=== PATIENT | female | born 1945 | race Caucasian/White ===

== ENCOUNTER 2019-08-19 23:41 | Inpatient (IN) | payer MEDICARE, MEDICAID ==
[~2019-08-19] VITALS: Ht 157.5 cm; Wt 103.9 kg
[2019-08-20] MEDS ORDERED: SODIUM CHLORIDE 0.9% 1,000 ML IV ONE (00:27)
[2019-08-20] MEDS ORDERED: ONDANSETRON HCL 4MG/2ML INJ IV STA (00:27)
[2019-08-20] MEDS ORDERED: MORPHINE SULFATE 4 MG/ML CPJ (NOT FOR IM USE) IV STA (00:27)
[2019-08-20 02:06] LABS: BASOPHILS % 0.1 % (0.0-2.0); EOSINOPHILS % 0.2 % (0.0-5.0); HEMATOCRIT. 36.1 % (36.0-48.0); HEMOGLOBIN. 12.1 g/dL (12.0-16.0); LYMPHOCYTES % 8.2 % (20.0-50.0); MEAN CORPUSCULAR HEMOGLOBIN 33.6 pg (28.0-32.0); MEAN CORPUSCULAR VOLUME 100.2 fL (81.0-99.0); MEAN PLATELET VOLUME 9.1 fl (7.4-10.4); MONOCYTES % 5.8 % (2.0-8.0); NEUTROPHILS % 85.7 % (40.0-76.0); PLATELET 184 x1000/uL (130-400); RED BLOOD CELL COUNT 3.61 mill/uL (4.2-5.4); RED CELL DISTRIBUTION WIDTH 12.5 % (11.6-14.6)
[2019-08-20 02:23] LABS: INR 1.1; PROTHROMBIN TIME 11.8 sec (9.6-11.0)
[2019-08-20 02:24] LABS: CHLORIDE 104 mEq/L (98-107)
[2019-08-20 04:16] LABS: CLARITY URINE CLEAR (CLEAR); COLOR URINE YELLOW (YELLOW); KETONES URINE NEGATIVE (NEGATIVE); LEUKOCYTE ESTERASE URINE TRACE (NEGATIVE); NITRITE URINE NEGATIVE (NEGATIVE); OCCULT BLOOD URINE NEGATIVE (NEGATIVE); PROTEIN URINE NEGATIVE (NEGATIVE); SPECIFIC GRAVITY URINE 1.017 (1.005-1.030); UROBILINOGEN URINE 0.2 E.U./dL (0.2-1.0)
[2019-08-20] MEDS ORDERED: MORPHINE SULFATE 4 MG/ML CPJ (NOT FOR IM USE) IV PRN (05:30)
[2019-08-20] MEDS ORDERED: DEXTROSE 50% WATER 50ML SYRINGE IV PRN ×2 (05:30→21:30)
[2019-08-20] MEDS: BLOOD SUGAR DIAGNOSTIC STRIP TEST SCH ×4 (07:00→21:18)
[2019-08-20] MEDS: INSULIN LISPRO (LOW DOSE) 100 UNITS/ML SUBCUT SCH ×4 (07:00→21:27)
[2019-08-20 08:00] VITALS: BP 107/46
[2019-08-20 09:00] VITALS: BP 107/46
[2019-08-20] MEDS ORDERED: DEXT 5%/0.9% NACL 1,000 ML IV SCH (10:15)
[2019-08-20] MEDS: ONDANSETRON HCL 4MG/2ML INJ IV PRN (10:51)
[2019-08-20] MEDS: MORPHINE SULFATE 2 MG/ML CPJ (NOT FOR IM USE) IV PRN ×3 (10:51→18:54)
[2019-08-20 12:27] LABS: T4 FREE 1.14 ng/dL (0.76-1.46)
[2019-08-20] MEDS ORDERED: GLIP10TA10 PO (14:05)
[2019-08-20] MEDS ORDERED: RIVA20TA PO (14:05)
[2019-08-20] MEDS ORDERED: OMEP20TA2 PO (14:05)
[2019-08-20] MEDS ORDERED: BENA40TA9 PO (14:05)
[2019-08-20] MEDS ORDERED: BISA-81 PO (14:05)
[2019-08-20] MEDS ORDERED: POLY17PO28 PO (14:05)
[2019-08-20] MEDS ORDERED: INSNPH SUBCUT (14:05)
[2019-08-20] MEDS ORDERED: HYDR25TA PO (14:05)
[2019-08-20] MEDS ORDERED: SIMV-46 PO (14:05)
[2019-08-20] MEDS ORDERED: ALEN70TA68 PO (14:05)
[2019-08-20] MEDS ORDERED: GABA-529 PO (14:05)
[2019-08-20] MEDS ORDERED: METO25TA6 PO (14:05)
[2019-08-20] MEDS ORDERED: METO-293 PO (14:05)
[2019-08-20] MEDS ORDERED: CALC-769 PO (14:05)
[2019-08-20] MEDS ORDERED: DOCU-150 PO (14:05)
[2019-08-20 16:00] VITALS: BP 169/76
[2019-08-20 16:24] LABS: T4 FREE 1.12 ng/dL (0.76-1.46)
[2019-08-20 16:27] LABS: CREATINE KINASE 52 IU/L (26-192)
[2019-08-20 16:28] LABS: CREATINE KINASE MB FRACTION < 1.0 ng/mL (0.5-3.6)
[2019-08-20] MEDS: METOCLOPRAMIDE 10MG/10 ML UDC PO SCH (16:49)
[2019-08-20] MEDS: SODIUM CHLORIDE 0.9% 1,000 ML IV SCH (16:50)
[2019-08-20] MEDS: HYDRALAZINE HCL 25MG TABLET PO SCH ×2 (19:17→23:28)
[2019-08-20 20:00] VITALS: BP 126/69
[2019-08-20] MEDS: OMEPRAZOLE 20MG CAPSULE EXTENDED RELEASE PO SCH (20:47)
[2019-08-20] MEDS: HYDROMORPHONE HCL/PF 2MG/ML CPJ IV PRN (21:10)
[2019-08-20] MEDS: GABAPENTIN 100MG CAPSULE PO SCH (21:53)
[2019-08-20] MEDS: POLYETHYLENE GLYCOL 3350 (17GM) 1 DOSE PACK PO SCH (21:54)
[2019-08-20] MEDS: METOPROLOL TARTRATE 25MG TABLET PO SCH (21:54)
[2019-08-20] MEDS: DOCUSATE SODIUM 100MG CAPSULE PO SCH (23:30)
[2019-08-21] VITALS: BP_SYST 118; BP_SYST 129; BP_DIAS 66; BP_DIAS 69
[2019-08-21] MEDS: HYDROMORPHONE HCL/PF 2MG/ML CPJ IV PRN ×4 (01:34→22:04)
[2019-08-21] MEDS: SODIUM CHLORIDE 0.9% 1,000 ML IV SCH ×2 (01:37→18:16)
[2019-08-21] MEDS: ACETAMINOPHEN 325MG TABLET PO PRN (01:39)
[2019-08-21 04:00] VITALS: BP 129/66
[2019-08-21] MEDS: HYDRALAZINE HCL 25MG TABLET PO SCH ×3 (06:00→21:59)
[2019-08-21] MEDS: OMEPRAZOLE 20MG CAPSULE EXTENDED RELEASE PO SCH ×2 (06:54→21:59)
[2019-08-21] MEDS: BLOOD SUGAR DIAGNOSTIC STRIP TEST SCH ×7 (06:54→21:00)
[2019-08-21 07:48] LABS: CREATINE KINASE 47 IU/L (26-192)
[2019-08-21 07:49] LABS: CREATINE KINASE MB FRACTION < 1.0 ng/mL (0.5-3.6)
[2019-08-21] MEDS: INSULIN LISPRO 100 UNITS/ML SUBCUT SCH ×4 (07:50→22:03)
[2019-08-21] MEDS: INSULIN LISPRO (LOW DOSE) 100 UNITS/ML SUBCUT SCH ×3 (07:50→18:22)
[2019-08-21 08:40] VITALS: BP 139/60
[2019-08-21 08:42] LABS: CLARITY URINE CLEAR (CLEAR); COLOR URINE YELLOW (YELLOW); KETONES URINE NEGATIVE (NEGATIVE); LEUKOCYTE ESTERASE URINE 1+ (NEGATIVE); NITRITE URINE NEGATIVE (NEGATIVE); OCCULT BLOOD URINE NEGATIVE (NEGATIVE); PROTEIN URINE NEGATIVE (NEGATIVE); UROBILINOGEN URINE 0.2 E.U./dL (0.2-1.0)
[2019-08-21] MEDS: DOCUSATE SODIUM 100MG CAPSULE PO SCH (09:00)
[2019-08-21] MEDS: METOPROLOL TARTRATE 25MG TABLET PO SCH ×2 (09:08→22:00)
[2019-08-21] MEDS: POLYETHYLENE GLYCOL 3350 (17GM) 1 DOSE PACK PO SCH (09:08)
[2019-08-21] MEDS: GABAPENTIN 100MG CAPSULE PO SCH ×2 (09:08→18:16)
[2019-08-21] MEDS: METOCLOPRAMIDE 10MG/10 ML UDC PO SCH ×2 (09:08→18:16)
[2019-08-21 12:00] VITALS: BP 133/63
[2019-08-21] MEDS ORDERED: BUPIVACAINE/EPINEPH/PF 0.25%/0.0005 10ML ONE (12:55)
[2019-08-21] MEDS ORDERED: BACITRACIN 50,000 UNITS/VIAL ONE (12:56)
[2019-08-21] MEDS ORDERED: BACITRACIN 15GM TUBE TOP ONE (12:56)
[2019-08-21] MEDS ORDERED: VANCOMYCIN HCL 1 GM/VIAL ONE (12:56)
[2019-08-21] MEDS: ONDANSETRON HCL 4MG/2ML INJ IV PRN (14:46)
[2019-08-21] MEDS ORDERED: PROPOFOL 200MG/20ML VIAL IV ONE (15:17)
[2019-08-21] MEDS ORDERED: ONDANSETRON HCL 4MG/2ML INJ IV PRN (16:45)
[2019-08-21] MEDS ORDERED: KETOROLAC 30MG/ML VIAL IV ONE (16:45)
[2019-08-21] MEDS ORDERED: FENTANYL CITRATE/PF 50MCG/ML 2ML VIAL IV PRN (16:45)
[2019-08-21] MEDS ORDERED: KETOROLAC 30MG/ML VIAL IV NR (17:13)
[2019-08-21 18:08] VITALS: BP 119/59
[2019-08-21 20:00] VITALS: BP 128/54
[2019-08-21] MEDS: CEFAZOLIN 1000MG PREMIX 50 ML IV SCH (22:00)
[2019-08-22] VITALS: BP 117/61
[2019-08-22 04:00] VITALS: BP 105/62
[2019-08-22] MEDS: SODIUM CHLORIDE 0.9% 1,000 ML IV SCH ×2 (05:11→18:05)
[2019-08-22] MEDS: HYDROMORPHONE HCL/PF 2MG/ML CPJ IV PRN ×3 (05:11→20:55)
[2019-08-22] MEDS: CEFAZOLIN 1000MG PREMIX 50 ML IV SCH (05:11)
[2019-08-22] MEDS: HYDRALAZINE HCL 25MG TABLET PO SCH ×3 (06:00→21:37)
[2019-08-22] MEDS: BLOOD SUGAR DIAGNOSTIC STRIP TEST SCH ×4 (06:21→20:57)
[2019-08-22] MEDS: OMEPRAZOLE 20MG CAPSULE EXTENDED RELEASE PO SCH ×2 (06:21→20:57)
[2019-08-22 08:00] VITALS: BP 130/47
[2019-08-22] MEDS: METOCLOPRAMIDE 10MG/10 ML UDC PO SCH ×2 (08:41→17:48)
[2019-08-22] MEDS: GABAPENTIN 100MG CAPSULE PO SCH ×2 (08:42→17:48)
[2019-08-22] MEDS: DOCUSATE SODIUM 100MG CAPSULE PO SCH (08:42)
[2019-08-22] MEDS: POLYETHYLENE GLYCOL 3350 (17GM) 1 DOSE PACK PO SCH (08:42)
[2019-08-22] MEDS: METOPROLOL TARTRATE 25MG TABLET PO SCH ×2 (08:43→20:56)
[2019-08-22] MEDS: INSULIN LISPRO 100 UNITS/ML SUBCUT SCH ×4 (08:55→21:06)
[2019-08-22] MEDS ORDERED: ENOXAPARIN 40MG/0.4ML SYR SUBCUT SCH (09:00)
[2019-08-22 12:00] VITALS: BP 103/57
[2019-08-22 16:00] VITALS: BP 152/53
[2019-08-22 16:26] LABS: BASOPHILS % 0.4 % (0.0-2.0); EOSINOPHILS % 0.5 % (0.0-5.0); HEMATOCRIT. 29.7 % (36.0-48.0); HEMOGLOBIN. 9.8 g/dL (12.0-16.0); LYMPHOCYTES % 12.7 % (20.0-50.0); MEAN CORPUSCULAR HEMOGLOBIN 33.8 pg (28.0-32.0); MEAN CORPUSCULAR VOLUME 102.1 fL (81.0-99.0); MEAN PLATELET VOLUME 9.8 fl (7.4-10.4); MONOCYTES % 8.8 % (2.0-8.0); NEUTROPHILS % 77.6 % (40.0-76.0); PLATELET 145 x1000/uL (130-400); RED BLOOD CELL COUNT 2.91 mill/uL (4.2-5.4); RED CELL DISTRIBUTION WIDTH 12.8 % (11.6-14.6)
[2019-08-22 17:04] LABS: CHLORIDE 106 mEq/L (98-107)
[2019-08-22 20:00] VITALS: BP 110/54
[2019-08-22] MEDS: ACETAMINOPHEN 325MG TABLET PO PRN (21:00)
[2019-08-22] MEDS ORDERED: HYDROCODONE/ACETAMINOPHEN 10/325MG TABLET PO PRN (22:45)
[2019-08-23] VITALS: BP 127/60
[2019-08-23 04:00] VITALS: BP 142/59
[2019-08-23] MEDS: BLOOD SUGAR DIAGNOSTIC STRIP TEST SCH ×4 (05:25→21:20)
[2019-08-23] MEDS: HYDRALAZINE HCL 25MG TABLET PO SCH ×3 (05:25→21:28)
[2019-08-23] MEDS: OMEPRAZOLE 20MG CAPSULE EXTENDED RELEASE PO SCH (06:23)
[2019-08-23 08:31] VITALS: BP 121/40
[2019-08-23] MEDS: POLYETHYLENE GLYCOL 3350 (17GM) 1 DOSE PACK PO SCH (08:43)
[2019-08-23] MEDS: METOCLOPRAMIDE 10MG/10 ML UDC PO SCH ×2 (08:43→17:04)
[2019-08-23] MEDS: DOCUSATE SODIUM 100MG CAPSULE PO SCH (08:43)
[2019-08-23] MEDS: METOPROLOL TARTRATE 25MG TABLET PO SCH ×2 (08:44→21:29)
[2019-08-23] MEDS: INSULIN LISPRO 100 UNITS/ML SUBCUT SCH ×4 (08:56→21:31)
[2019-08-23] MEDS: HYDROCODONE/ACETAMINOPHEN 5/325MG TABLET PO PRN ×3 (11:05→21:29)
[2019-08-23 11:57] VITALS: BP 119/34
[2019-08-23 14:05] LABS: CHLORIDE 108 mEq/L (98-107)
[2019-08-23 15:05] LABS: BASOPHILS % 0.6 % (0.0-2.0); EOSINOPHILS % 2.4 % (0.0-5.0); HEMATOCRIT. 28.3 % (36.0-48.0); HEMOGLOBIN. 9.4 g/dL (12.0-16.0); LYMPHOCYTES % 14.1 % (20.0-50.0); MEAN CORPUSCULAR HEMOGLOBIN 33.7 pg (28.0-32.0); MEAN CORPUSCULAR VOLUME 101.7 fL (81.0-99.0); MEAN PLATELET VOLUME 9.4 fl (7.4-10.4); MONOCYTES % 9.5 % (2.0-8.0); NEUTROPHILS % 73.4 % (40.0-76.0); PLATELET 157 x1000/uL (130-400); RED BLOOD CELL COUNT 2.78 mill/uL (4.2-5.4); RED CELL DISTRIBUTION WIDTH 12.3 % (11.6-14.6)
[2019-08-23 16:36] VITALS: BP 132/55
[2019-08-23] MEDS: RIVAROXABAN 20 MG TABLET PO SCH (17:04)
[2019-08-23 20:00] VITALS: BP 144/67
[2019-08-23] MEDS: FAMOTIDINE 20MG TABLET PO SCH (21:28)
[2019-08-24] VITALS: BP 135/58
[2019-08-24] MEDS: HYDROCODONE/ACETAMINOPHEN 5/325MG TABLET PO PRN ×3 (02:11→14:01)
[2019-08-24 04:13] VITALS: BP 137/49
[2019-08-24] MEDS: BLOOD SUGAR DIAGNOSTIC STRIP TEST SCH ×2 (06:12→12:20)
[2019-08-24] MEDS: HYDRALAZINE HCL 25MG TABLET PO SCH ×2 (06:16→17:10)
[2019-08-24 08:06] VITALS: BP 149/52
[2019-08-24] MEDS: DOCUSATE SODIUM 100MG CAPSULE PO SCH (09:00)
[2019-08-24] MEDS: POLYETHYLENE GLYCOL 3350 (17GM) 1 DOSE PACK PO SCH (09:00)
[2019-08-24] MEDS: INSULIN LISPRO 100 UNITS/ML SUBCUT SCH ×3 (09:55→17:18)
[2019-08-24] MEDS: METOPROLOL TARTRATE 25MG TABLET PO SCH (09:58)
[2019-08-24] MEDS: METOCLOPRAMIDE 10MG/10 ML UDC PO SCH ×2 (10:07→17:09)
[2019-08-24] MEDS: FAMOTIDINE 20MG TABLET PO SCH (10:07)
[2019-08-24 11:41] VITALS: BP 153/61
[2019-08-24] MEDS ORDERED: SODIUM CHLORIDE 0.9% 1,000 ML IV SCH (14:00)
[2019-08-24 15:55] VITALS: BP 159/55
[2019-08-24] MEDS: RIVAROXABAN 20 MG TABLET PO SCH (17:14)
== END 2019-08-24 17:33 | DRG 481 ==
LOC: ER 23:41 → ENRESERV 08-20 07:33 → 6WST 08-20 08:35 → EDBEDREQ 08-20 08:52
PROVIDERS: ADMIT Family Medicine; ATTEND Family Medicine
PROC: 0QS704Z Reposition Left Upper Femur with Internal Fixation Device, Open Approach (ICD-10-PCS; principal; 2019-08-21)
DX: S72.002A Fracture of unspecified part of neck of left femur, initial encounter for closed fracture (principal); Z68.41 Body mass index [BMI] 40.0-44.9, adult; E78.5 Hyperlipidemia, unspecified; E11.51 Type 2 diabetes mellitus with diabetic peripheral angiopathy without gangrene; E66.01 Morbid (severe) obesity due to excess calories; Z96.641 Presence of right artificial hip joint; I48.91 Unspecified atrial fibrillation; W18.39XA Other fall on same level, initial encounter; I10 Essential (primary) hypertension; Z79.01 Long term (current) use of anticoagulants; Z90.710 Acquired absence of both cervix and uterus; Y93.89 Activity, other specified; Y92.89 Other specified places as the place of occurrence of the external cause; Y99.8 Other external cause status; Z79.4 Long term (current) use of insulin; Z79.899 Other long term (current) drug therapy; Z87.81 Personal history of (healed) traumatic fracture
CPT/HCPCS: 36415; 71045; 72170; 73503; 73552; 73700; 76000; 78582; 80053; 80061; 81003; 82550; 82553; 82962; 83036; 83735; 83880; 84439; 84443; 84484; 85018; 85025; 85379; 86850; 86900; 93005; 93306; 93970; 96372; 96374; 96375; 96376; 97110; 97162; 97530; 99285; A6261; A9558; C1713; J0171; J0690; J1170; J1650; J1815; J1885; J2270; J2405; J2704; J3010; J3370; J3490; J7030; J7042; J8597; A4315

== ENCOUNTER 2019-08-24 17:35 | Inpatient (IN) | payer MEDICARE, MEDICAID ==
[~2019-08-24] VITALS: Ht 157.5 cm; Wt 103.9 kg
[~2019-08-24 17:35] MED LIST: ALEN70TA68 PO; BENA40TA9 PO; BISA-81 PO; CALC-769 PO; DOCU-150 PO; GABA-529 PO; GLIP10TA10 PO; HYDR25TA PO; INSNPH SUBCUT; METO-293 PO; METO25TA6 PO; OMEP20TA2 PO; POLY17PO28 PO; RIVA20TA PO; SIMV-46 PO
[2019-08-24] MEDS ORDERED: DEXTROSE 50% WATER 50ML SYRINGE IV PRN (19:30)
[2019-08-24] MEDS ORDERED: ONDANSETRON HCL 4MG/2ML INJ IV PRN (19:45)
[2019-08-24 20:00] VITALS: BP 148/67
[2019-08-24] MEDS ORDERED: SODIUM CHLORIDE 0.9% 1,000 ML IV SCH (20:00)
[2019-08-24] MEDS: FAMOTIDINE 20MG TABLET PO SCH (21:47)
[2019-08-24] MEDS: METOPROLOL TARTRATE 25MG TABLET PO SCH (21:48)
[2019-08-24] MEDS: BLOOD SUGAR DIAGNOSTIC STRIP TEST SCH (21:48)
[2019-08-24] MEDS: HYDROCODONE/ACETAMINOPHEN 5/325MG TABLET PO PRN (21:49)
[2019-08-24] MEDS: HYDRALAZINE HCL 25MG TABLET PO SCH (21:53)
[2019-08-24] MEDS: INSULIN LISPRO 100 UNITS/ML SUBCUT SCH (23:20)
[2019-08-25] MEDS: HYDRALAZINE HCL 25MG TABLET PO SCH ×3 (06:32→22:52)
[2019-08-25] MEDS: BLOOD SUGAR DIAGNOSTIC STRIP TEST SCH ×4 (06:32→21:02)
[2019-08-25] MEDS: HYDROCODONE/ACETAMINOPHEN 5/325MG TABLET PO PRN ×4 (06:33→21:03)
[2019-08-25] MEDS: INSULIN LISPRO 100 UNITS/ML SUBCUT SCH ×4 (06:56→23:33)
[2019-08-25 07:59] VITALS: BP 148/63
[2019-08-25] MEDS: METOCLOPRAMIDE HCL 10MG TABLET PO SCH ×2 (08:34→17:26)
[2019-08-25] MEDS: METOPROLOL TARTRATE 25MG TABLET PO SCH ×2 (08:35→21:02)
[2019-08-25] MEDS: FAMOTIDINE 20MG TABLET PO SCH ×2 (08:35→21:01)
[2019-08-25] MEDS: POLYETHYLENE GLYCOL 3350 (17GM) 1 DOSE PACK PO SCH (08:38)
[2019-08-25] MEDS: DOCUSATE SODIUM SUGAR FREE 100MG/10ML UDC NG SCH (08:39)
[2019-08-25] MEDS: ACETAMINOPHEN 325MG TABLET PO PRN ×2 (10:05→19:01)
[2019-08-25 11:51] VITALS: BP 138/59
[2019-08-25 16:19] VITALS: BP 147/68
[2019-08-25] MEDS: RIVAROXABAN 20 MG TABLET PO SCH (17:27)
[2019-08-25] MEDS ORDERED: POLYVINYL ALCOHOL OPHTH DROPS 15ML BOTHEYE PRN (18:45)
[2019-08-25 20:00] VITALS: BP 158/72
[2019-08-26] MEDS: HYDROCODONE/ACETAMINOPHEN 5/325MG TABLET PO PRN ×4 (02:50→21:27)
[2019-08-26] MEDS: ACETAMINOPHEN 325MG TABLET PO PRN ×2 (06:07→13:29)
[2019-08-26] MEDS: HYDRALAZINE HCL 25MG TABLET PO SCH ×3 (06:08→22:00)
[2019-08-26] MEDS: BLOOD SUGAR DIAGNOSTIC STRIP TEST SCH ×4 (06:08→21:11)
[2019-08-26] MEDS: INSULIN LISPRO 100 UNITS/ML SUBCUT SCH ×5 (07:04→21:31)
[2019-08-26 07:53] VITALS: BP 145/64
[2019-08-26] MEDS: DOCUSATE SODIUM SUGAR FREE 100MG/10ML UDC NG SCH (09:00)
[2019-08-26] MEDS: POLYETHYLENE GLYCOL 3350 (17GM) 1 DOSE PACK PO SCH (09:00)
[2019-08-26] MEDS: FAMOTIDINE 20MG TABLET PO SCH ×2 (09:21→21:29)
[2019-08-26] MEDS: METOPROLOL TARTRATE 25MG TABLET PO SCH ×2 (09:21→21:29)
[2019-08-26] MEDS: METOCLOPRAMIDE HCL 10MG TABLET PO SCH ×2 (09:22→17:21)
[2019-08-26 13:32] VITALS: BP 141/61
[2019-08-26] MEDS ORDERED: POLYETHYLENE GLYCOL 3350 (17GM) 1 DOSE PACK PO PRN (14:15)
[2019-08-26] MEDS: RIVAROXABAN 20 MG TABLET PO SCH (17:21)
[2019-08-26] MEDS: TRAMADOL 50MG TABLET PO PRN (18:30)
[2019-08-26 20:00] VITALS: BP 145/68
[2019-08-27] MEDS: TRAMADOL 50MG TABLET PO PRN ×3 (01:30→17:38)
[2019-08-27] MEDS: HYDRALAZINE HCL 25MG TABLET PO SCH ×3 (05:00→22:00)
[2019-08-27] MEDS: BLOOD SUGAR DIAGNOSTIC STRIP TEST SCH ×4 (06:11→21:47)
[2019-08-27] MEDS: HYDROCODONE/ACETAMINOPHEN 5/325MG TABLET PO PRN ×2 (06:14→13:22)
[2019-08-27] MEDS: INSULIN LISPRO 100 UNITS/ML SUBCUT SCH ×4 (06:16→22:22)
[2019-08-27 07:27] LABS: HEMATOCRIT. 29.3 % (36.0-48.0); HEMOGLOBIN. 9.9 g/dL (12.0-16.0); MEAN CORPUSCULAR HEMOGLOBIN 33.8 pg (28.0-32.0); MEAN CORPUSCULAR VOLUME 99.7 fL (81.0-99.0); MEAN PLATELET VOLUME 8.7 fl (7.4-10.4); PLATELET 259 x1000/uL (130-400); RED BLOOD CELL COUNT 2.94 mill/uL (4.2-5.4); RED CELL DISTRIBUTION WIDTH 12.4 % (11.6-14.6)
[2019-08-27 08:04] VITALS: BP 148/64
[2019-08-27] MEDS: DOCUSATE SODIUM SUGAR FREE 100MG/10ML UDC PO SCH (08:55)
[2019-08-27] MEDS: METOCLOPRAMIDE HCL 10MG TABLET PO SCH ×2 (08:56→16:32)
[2019-08-27] MEDS: METOPROLOL TARTRATE 25MG TABLET PO SCH ×2 (08:57→22:20)
[2019-08-27] MEDS: FAMOTIDINE 20MG TABLET PO SCH ×2 (08:57→22:20)
[2019-08-27] MEDS: RIVAROXABAN 20 MG TABLET PO SCH (16:32)
[2019-08-27 16:39] LABS: PLATELET ESTIMATE NORMAL
[2019-08-27 20:00] VITALS: BP 145/63
[2019-08-27] MEDS: ACETAMINOPHEN 325MG TABLET PO PRN (22:19)
[2019-08-28] MEDS: HYDROCODONE/ACETAMINOPHEN 5/325MG TABLET PO PRN ×4 (02:22→22:02)
[2019-08-28] MEDS: BLOOD SUGAR DIAGNOSTIC STRIP TEST SCH ×4 (05:39→21:00)
[2019-08-28] MEDS: HYDRALAZINE HCL 25MG TABLET PO SCH ×3 (05:40→22:00)
[2019-08-28] MEDS: INSULIN LISPRO 100 UNITS/ML SUBCUT SCH ×4 (06:21→22:07)
[2019-08-28 08:20] VITALS: BP 137/59
[2019-08-28] MEDS: METOPROLOL TARTRATE 25MG TABLET PO SCH ×2 (08:29→21:00)
[2019-08-28] MEDS: METOCLOPRAMIDE HCL 10MG TABLET PO SCH ×2 (08:29→17:18)
[2019-08-28] MEDS: FAMOTIDINE 20MG TABLET PO SCH ×2 (08:29→22:03)
[2019-08-28] MEDS: DOCUSATE SODIUM SUGAR FREE 100MG/10ML UDC PO SCH (08:29)
[2019-08-28] MEDS: TRAMADOL 50MG TABLET PO PRN (10:35)
[2019-08-28] MEDS: RIVAROXABAN 20 MG TABLET PO SCH (17:22)
[2019-08-28 20:00] VITALS: BP 122/47
[2019-08-29] MEDS: TRAMADOL 50MG TABLET PO PRN (02:58)
[2019-08-29] MEDS: BLOOD SUGAR DIAGNOSTIC STRIP TEST SCH ×4 (06:03→21:47)
[2019-08-29] MEDS: HYDRALAZINE HCL 25MG TABLET PO SCH ×3 (06:03→21:47)
[2019-08-29] MEDS: INSULIN LISPRO 100 UNITS/ML SUBCUT SCH ×4 (06:05→21:56)
[2019-08-29 07:42] VITALS: BP 138/52
[2019-08-29] MEDS: METOPROLOL TARTRATE 25MG TABLET PO SCH ×2 (08:37→21:46)
[2019-08-29] MEDS: DOCUSATE SODIUM SUGAR FREE 100MG/10ML UDC PO SCH (08:37)
[2019-08-29] MEDS: FAMOTIDINE 20MG TABLET PO SCH ×2 (08:37→21:46)
[2019-08-29] MEDS: METOCLOPRAMIDE HCL 10MG TABLET PO SCH ×2 (08:37→17:20)
[2019-08-29] MEDS: HYDROCODONE/ACETAMINOPHEN 5/325MG TABLET PO PRN ×3 (08:38→19:33)
[2019-08-29] MEDS: RIVAROXABAN 20 MG TABLET PO SCH (17:20)
[2019-08-29 20:00] VITALS: BP 140/43
[2019-08-30] MEDS: HYDROCODONE/ACETAMINOPHEN 5/325MG TABLET PO PRN ×4 (00:26→20:54)
[2019-08-30] MEDS: HYDRALAZINE HCL 25MG TABLET PO SCH ×3 (06:00→22:00)
[2019-08-30] MEDS: BLOOD SUGAR DIAGNOSTIC STRIP TEST SCH ×4 (06:30→20:59)
[2019-08-30] MEDS: INSULIN LISPRO 100 UNITS/ML SUBCUT SCH ×4 (06:38→21:20)
[2019-08-30 08:06] VITALS: BP 129/52
[2019-08-30] MEDS: METOCLOPRAMIDE HCL 10MG TABLET PO SCH ×2 (08:14→16:26)
[2019-08-30] MEDS: FAMOTIDINE 20MG TABLET PO SCH ×2 (08:14→20:51)
[2019-08-30] MEDS: METOPROLOL TARTRATE 25MG TABLET PO SCH ×2 (08:15→20:52)
[2019-08-30] MEDS: DOCUSATE SODIUM SUGAR FREE 100MG/10ML UDC PO SCH (08:17)
[2019-08-30] MEDS: TRAMADOL 50MG TABLET PO PRN (08:29)
[2019-08-30 12:11] VITALS: BP 146/54
[2019-08-30] MEDS: GLIPIZIDE 5MG TABLET PO SCH ×2 (12:44→16:26)
[2019-08-30] MEDS: RIVAROXABAN 20 MG TABLET PO SCH (16:27)
[2019-08-30 20:00] VITALS: BP 129/60
[2019-08-31] MEDS: HYDROCODONE/ACETAMINOPHEN 5/325MG TABLET PO PRN ×4 (01:30→20:52)
[2019-08-31] MEDS: HYDRALAZINE HCL 25MG TABLET PO SCH ×3 (06:39→23:11)
[2019-08-31] MEDS: BLOOD SUGAR DIAGNOSTIC STRIP TEST SCH ×4 (06:40→20:53)
[2019-08-31] MEDS: INSULIN LISPRO 100 UNITS/ML SUBCUT SCH ×4 (06:44→21:51)
[2019-08-31 07:58] VITALS: BP 123/65
[2019-08-31] MEDS: FAMOTIDINE 20MG TABLET PO SCH ×2 (08:09→20:53)
[2019-08-31] MEDS: METOCLOPRAMIDE HCL 10MG TABLET PO SCH ×2 (08:09→16:28)
[2019-08-31] MEDS: GLIPIZIDE 5MG TABLET PO SCH ×2 (08:09→16:28)
[2019-08-31] MEDS: METOPROLOL TARTRATE 25MG TABLET PO SCH ×2 (08:09→20:52)
[2019-08-31] MEDS: DOCUSATE SODIUM SUGAR FREE 100MG/10ML UDC PO SCH (08:11)
[2019-08-31] MEDS: TRAMADOL 50MG TABLET PO PRN (10:14)
[2019-08-31 13:11] VITALS: BP 130/51
[2019-08-31] MEDS: RIVAROXABAN 20 MG TABLET PO SCH (16:28)
[2019-08-31 20:00] VITALS: BP 126/58
[2019-09-01] MEDS: HYDROCODONE/ACETAMINOPHEN 5/325MG TABLET PO PRN ×4 (02:42→22:12)
[2019-09-01] MEDS: BLOOD SUGAR DIAGNOSTIC STRIP TEST SCH ×4 (06:05→21:00)
[2019-09-01] MEDS: HYDRALAZINE HCL 25MG TABLET PO SCH ×3 (06:06→22:00)
[2019-09-01 07:20] LABS: BASOPHILS % 0.5 % (0.0-2.0); EOSINOPHILS % 2.4 % (0.0-5.0); HEMATOCRIT. 31.3 % (36.0-48.0); HEMOGLOBIN. 10.7 g/dL (12.0-16.0); LYMPHOCYTES % 18.3 % (20.0-50.0); MEAN CORPUSCULAR HEMOGLOBIN 34.2 pg (28.0-32.0); MEAN CORPUSCULAR VOLUME 99.8 fL (81.0-99.0); MEAN PLATELET VOLUME 8.4 fl (7.4-10.4); MONOCYTES % 7.4 % (2.0-8.0); NEUTROPHILS % 71.4 % (40.0-76.0); PLATELET 370 x1000/uL (130-400); RED BLOOD CELL COUNT 3.13 mill/uL (4.2-5.4)
[2019-09-01 07:36] LABS: CHLORIDE 101 mEq/L (98-107)
[2019-09-01 08:00] VITALS: BP 123/40
[2019-09-01] MEDS: METOPROLOL TARTRATE 25MG TABLET PO SCH ×2 (09:00→22:10)
[2019-09-01] MEDS: INSULIN LISPRO 100 UNITS/ML SUBCUT SCH ×4 (09:00→22:19)
[2019-09-01] MEDS: DOCUSATE SODIUM SUGAR FREE 100MG/10ML UDC PO SCH (10:48)
[2019-09-01] MEDS: METOCLOPRAMIDE HCL 10MG TABLET PO SCH ×2 (10:49→17:38)
[2019-09-01] MEDS: GLIPIZIDE 5MG TABLET PO SCH ×2 (10:49→17:38)
[2019-09-01] MEDS: FAMOTIDINE 20MG TABLET PO SCH ×2 (10:49→22:09)
[2019-09-01] MEDS ORDERED: LACTULOSE 20G/30ML UDC PO SCH ×2 (13:07→13:14)
[2019-09-01] MEDS: MAGNESIUM OXIDE 400MG TABLET PO SCH ×2 (14:35→22:08)
[2019-09-01] MEDS: RIVAROXABAN 20 MG TABLET PO SCH (17:38)
[2019-09-01 20:00] VITALS: BP 138/57
[2019-09-02] MEDS: HYDRALAZINE HCL 25MG TABLET PO SCH ×3 (05:47→22:00)
[2019-09-02] MEDS: INSULIN LISPRO 100 UNITS/ML SUBCUT SCH ×4 (06:22→22:19)
[2019-09-02] MEDS: ACETAMINOPHEN 325MG TABLET PO PRN ×2 (06:31→21:28)
[2019-09-02] MEDS: BLOOD SUGAR DIAGNOSTIC STRIP TEST SCH ×4 (06:31→21:13)
[2019-09-02 08:00] VITALS: BP 96/50
[2019-09-02] MEDS: METOPROLOL TARTRATE 25MG TABLET PO SCH ×2 (09:00→21:28)
[2019-09-02] MEDS: FAMOTIDINE 20MG TABLET PO SCH ×2 (10:40→21:28)
[2019-09-02] MEDS: DOCUSATE SODIUM 100MG CAPSULE PO SCH (10:40)
[2019-09-02] MEDS: MAGNESIUM OXIDE 400MG TABLET PO SCH ×2 (10:40→21:27)
[2019-09-02] MEDS: METOCLOPRAMIDE HCL 10MG TABLET PO SCH ×2 (10:40→18:42)
[2019-09-02] MEDS: GLIPIZIDE 5MG TABLET PO SCH ×2 (10:40→18:42)
[2019-09-02] MEDS: HYDROCODONE/ACETAMINOPHEN 5/325MG TABLET PO PRN (14:16)
[2019-09-02] MEDS: RIVAROXABAN 20 MG TABLET PO SCH (18:42)
[2019-09-02 20:00] VITALS: BP 126/60
[2019-09-03] MEDS: HYDROCODONE/ACETAMINOPHEN 5/325MG TABLET PO PRN ×4 (00:25→21:16)
[2019-09-03] MEDS: BLOOD SUGAR DIAGNOSTIC STRIP TEST SCH ×4 (05:38→21:18)
[2019-09-03] MEDS: HYDRALAZINE HCL 25MG TABLET PO SCH ×3 (05:38→22:00)
[2019-09-03] MEDS: INSULIN LISPRO 100 UNITS/ML SUBCUT SCH ×4 (06:15→21:17)
[2019-09-03] MEDS: GLIPIZIDE 5MG TABLET PO SCH ×2 (08:52→16:25)
[2019-09-03] MEDS: FAMOTIDINE 20MG TABLET PO SCH ×2 (08:52→21:15)
[2019-09-03] MEDS: METOPROLOL TARTRATE 25MG TABLET PO SCH ×2 (08:52→21:17)
[2019-09-03] MEDS: METOCLOPRAMIDE HCL 10MG TABLET PO SCH ×2 (08:52→16:25)
[2019-09-03] MEDS: DOCUSATE SODIUM 100MG CAPSULE PO SCH (08:55)
[2019-09-03 09:15] VITALS: BP 125/57
[2019-09-03] MEDS: ACETAMINOPHEN 325MG TABLET PO PRN (12:16)
[2019-09-03 13:16] VITALS: BP 134/60
[2019-09-03] MEDS: RIVAROXABAN 20 MG TABLET PO SCH (16:25)
[2019-09-03 20:00] VITALS: BP 138/62
[2019-09-04] MEDS: ACETAMINOPHEN 325MG TABLET PO PRN (04:49)
[2019-09-04] MEDS: INSULIN LISPRO 100 UNITS/ML SUBCUT SCH ×4 (06:14→22:13)
[2019-09-04] MEDS: BLOOD SUGAR DIAGNOSTIC STRIP TEST SCH ×4 (06:15→21:00)
[2019-09-04] MEDS: HYDRALAZINE HCL 25MG TABLET PO SCH ×2 (06:15→13:09)
[2019-09-04 08:35] VITALS: BP 156/81
[2019-09-04] MEDS: METOPROLOL TARTRATE 25MG TABLET PO SCH ×2 (09:00→22:08)
[2019-09-04] MEDS: METOCLOPRAMIDE HCL 10MG TABLET PO SCH ×2 (09:00→16:22)
[2019-09-04] MEDS: GLIPIZIDE 5MG TABLET PO SCH ×2 (09:00→16:22)
[2019-09-04] MEDS: HYDROCODONE/ACETAMINOPHEN 5/325MG TABLET PO PRN ×3 (09:00→22:01)
[2019-09-04] MEDS: FAMOTIDINE 20MG TABLET PO SCH ×2 (09:00→22:08)
[2019-09-04] MEDS: DOCUSATE SODIUM 100MG CAPSULE PO SCH (09:00)
[2019-09-04 12:31] VITALS: BP 142/61
[2019-09-04] MEDS ORDERED: NA PHOS,M-B/NA PHOS,DI-BA ENEMA 118ML PR PRN (13:30)
[2019-09-04] MEDS ORDERED: BISACODYL 5MG TABLET PO PRN (13:30)
[2019-09-04] MEDS: RIVAROXABAN 20 MG TABLET PO SCH (16:22)
[2019-09-04 20:00] VITALS: BP 135/63
[2019-09-05] MEDS: HYDRALAZINE HCL 25MG TABLET PO SCH ×4 (06:33→22:00)
[2019-09-05] MEDS: INSULIN LISPRO 100 UNITS/ML SUBCUT SCH ×4 (06:33→21:49)
[2019-09-05] MEDS: BLOOD SUGAR DIAGNOSTIC STRIP TEST SCH ×4 (06:35→21:47)
[2019-09-05 08:00] VITALS: BP 164/64
[2019-09-05] MEDS: DOCUSATE SODIUM 100MG CAPSULE PO SCH (09:00)
[2019-09-05] MEDS: FAMOTIDINE 20MG TABLET PO SCH ×2 (09:00→21:46)
[2019-09-05] MEDS: GLIPIZIDE 5MG TABLET PO SCH ×2 (09:00→17:00)
[2019-09-05] MEDS: METOCLOPRAMIDE HCL 10MG TABLET PO SCH ×2 (09:00→17:00)
[2019-09-05] MEDS: METOPROLOL TARTRATE 25MG TABLET PO SCH ×2 (09:01→21:47)
[2019-09-05] MEDS: HYDROCODONE/ACETAMINOPHEN 5/325MG TABLET PO PRN ×3 (09:02→23:20)
[2019-09-05] MEDS: ACETAMINOPHEN 325MG TABLET PO PRN (13:29)
[2019-09-05] MEDS: RIVAROXABAN 20 MG TABLET PO SCH (17:00)
[2019-09-05 20:00] VITALS: BP 141/68
[2019-09-06] MEDS: HYDROCODONE/ACETAMINOPHEN 5/325MG TABLET PO PRN ×3 (05:17→14:02)
[2019-09-06] MEDS: HYDRALAZINE HCL 25MG TABLET PO SCH ×2 (05:18→14:01)
[2019-09-06] MEDS: BLOOD SUGAR DIAGNOSTIC STRIP TEST SCH ×2 (06:32→11:55)
[2019-09-06] MEDS: INSULIN LISPRO 100 UNITS/ML SUBCUT SCH ×2 (06:45→14:15)
[2019-09-06 08:00] VITALS: BP 123/61
[2019-09-06] MEDS: DOCUSATE SODIUM 100MG CAPSULE PO SCH (08:54)
[2019-09-06] MEDS: GLIPIZIDE 5MG TABLET PO SCH (08:54)
[2019-09-06] MEDS: METOPROLOL TARTRATE 25MG TABLET PO SCH (08:54)
[2019-09-06] MEDS: METOCLOPRAMIDE HCL 10MG TABLET PO SCH (08:54)
[2019-09-06] MEDS: FAMOTIDINE 20MG TABLET PO SCH (08:54)
[2019-09-06 14:28] VITALS: BP 120/69
== END 2019-09-06 17:43 | disposition home or self-care (01) | DRG 536 ==
PROVIDERS: ADMIT Psychiatry & Neurology Neurology; ATTEND Family Medicine
DX: S72.002A Fracture of unspecified part of neck of left femur, initial encounter for closed fracture (principal); Z68.41 Body mass index [BMI] 40.0-44.9, adult; K59.00 Constipation, unspecified; E11.9 Type 2 diabetes mellitus without complications; D64.9 Anemia, unspecified; M79.609 Pain in unspecified limb; E66.01 Morbid (severe) obesity due to excess calories; I10 Essential (primary) hypertension; I48.91 Unspecified atrial fibrillation; Z96.641 Presence of right artificial hip joint; Z79.01 Long term (current) use of anticoagulants; W19.XXXA Unspecified fall, initial encounter; Y93.89 Activity, other specified; Y92.098 Other place in other non-institutional residence as the place of occurrence of the external cause; Y99.8 Other external cause status
CPT/HCPCS: 36415; 80053; 82040; 82962; 83735; 84100; 85025; 93971; 97110; 97116; 97162; 97166; 97530; 97535; J1815; J8597